=== PATIENT | female | born 1950 | race American Indian/Alaskan Native ===

== ENCOUNTER 2019-12-30 07:30 | Day surgery (SDC) | payer MEDICARE ==
[~2019-12-30 07:30] MED LIST: LACTATED RINGERS 1,000 ML IV SCH; MIDAZOLAM 2 MG/2 ML INJ IV NR; ceFAZolin/Water 2 GM/20 ML 2 GM/20 ML SYRINGE IV NR
[2019-12-30] MEDS ORDERED: HYDROcodone/ACETAMINOPHEN 5-325 MG TAB PO PRN (07:56)
[2019-12-30] MEDS ORDERED: fentaNYL 100 MCG/2 ML INJ IV PRN (07:56)
--- NOTE | 2019-12-30 07:56 | Anesthesia Consultation ---
Anesthesia Consult and Med Hx Date of service: 12/30/19 - Airway Anesthetic Teeth Evaluation: Good ROM Head & Neck: Adequate Mental/Hyoid Distance: Adequate Mallampati Class: Class II Intubation Access Assessment: Probably Good - Pulmonary Exam CTA: Yes - Cardiac Exam Cardiac Exam: RRR - Pre-Operative Health Status ASA Pre-Surgery Classification: ASA2 Proposed Anesthetic Plan: General - Pulmonary Hx Smoking: No Hx Respiratory Symptoms: No Hx Sleep Apnea: No (ABHI PRE SCREEN LOW RISK) - Cardiovascular System Hx Hypertension: Yes (took amlodipine this morning) Hx Heart Attack/AMI: No Hx Percutaneous Transluminal Coronary Angioplasty (PTCA): No - Central Nervous System CVA: No - Gastrointestinal Hx Gastroesophageal Reflux Disease: No - Endocrine Hx Renal Disease: No Hx Liver Disease: No Hx Non-Insulin Dependent Diabetes: Yes Hx Thyroid Disease: No - Other Systems Hx Obesity: No - Additional Comments Anesthesia Medical History Comments: No hx anesthetic complications. Remote hx PE, no longer on anticoagulation.
--- NOTE | 2019-12-30 07:56 | Anesthesia Day of Surgery ---
Anesthesia Day of Surgery - Day of Surgery Patient Examined: Yes Patient H&P Reviewed: Yes Patient is NPO: Yes
[2019-12-30] MEDS ORDERED: HYDROmorphone 1 MG/1 ML INJ ONE (09:21)
[2019-12-30] MEDS ORDERED: propofoL 200 MG/20 ML VIAL IV ONE (09:22)
[2019-12-30] MEDS ORDERED: LIDOCAINE MPF (2%) 20 MG/1 ML VIAL 5 ML ONE (09:22)
[2019-12-30] MEDS ORDERED: ONDANSETRON 4 MG/2 ML INJ ONE (09:39)
--- NOTE | 2019-12-30 10:07 | Short Stay Summary ---
Short Stay Documentation Date of service: 12/30/19 - History H&P: obtained from office - Allergies and Medications Current Medications: Allergies No Known Allergies Allergy (Verified 12/24/19 15:07) Home Medications Medication Instructions Recorded Confirmed Last Taken Type Atorvastatin [Lipitor Tab] 40 mg PO QHS 12/24/19 12/24/19 12/29/19 History Multivit-Min/Iron/Folic/Lutein 1 each PO DAILY 12/24/19 12/24/19 12/29/19 History [Centrum Silver Women Tablet] Potassium Citrate [Potassium 10 meq PO BID 12/24/19 12/24/19 12/29/19 History Citrate ER] amLODIPine [Norvasc] 5 mg PO DAILY 12/24/19 12/30/19 12/30/19 06:30 History metFORMIN [Glucophage] 500 mg PO QDAY 12/24/19 12/24/19 12/29/19 History Active Medications Acetaminophen/Hydrocodone Bitart ([place] 5/325) 1 each PO ONCE PRN PRN Reason: Pain, Moderate (4-6) Fentanyl (Sublimaze) 50 mcg IV Q5MIN PRN PRN Reason: Pain , Severe (7-10) Cefazolin Sodium (Ancef/Sterile Water 2 Gm/20 Ml) 2 gm in 20 mls @ 80 mls/hr IV PREOP NR; Protocol Stop: 12/30/19 23:59 Lactated Ringer's (Lactated Ringers) 1,000 mls @ 100 mls/hr IV DIRECT VALORIE Stop: 12/30/19 23:59 Last Admin: 12/30/19 08:40 Dose: 100 mls/hr Documented by: Midazolam HCl (Versed) 2 mg IV PREOP NR Stop: 12/30/19 23:59 Last Admin: 12/30/19 08:45 Dose: 2 mg Documented by: - Brief post op/procedure progress note Date of procedure: 12/30/19 Pre-op diagnosis: left renal stonex2---10mm Post-op diagnosis: same Procedure: eswl Anesthesia: DARIOA Surgeon: MARLENE PALENCIA Pathology: none Condition: stable - Hospital course Hospital course: ultram,norco, &post op info on chart - Disposition Condition at discharge: Stable Disposition: DC-01 TO HOME OR SELFCARE Short Stay Discharge Plan Follow up with: RL GARZON MD [Primary Care Provider] - 7 Days
--- NOTE | 2019-12-30 11:25 | Post Anesthesia Evaluation ---
- Post Anesthesia Evaluation Patient Participated: Yes Airway Patent: Yes Stable Respiratory Function: Yes Nausea/Vomiting: No Temp > 96.8F: Yes Pain Manageable: Yes Adequeate Hydration: Yes Anesthesia Complications: No
[2019-12-30 11:42] VITALS: BP 115/78
--- NOTE | 2019-12-30 12:03 | Operative Report ---
PREOPERATIVE DIAGNOSIS: Left renal stone. POSTOPERATIVE DIAGNOSIS: Left renal stones x 2, aggregate 10 mm. PROCEDURE: Left extracorporal shockwave lithotripsy, staged procedure. SURGEON: Josh Asencio M.D. ANESTHESIA: General. ESTIMATED BLOOD LOSS: Minimal. FLUIDS: Crystalloid. COMPLICATIONS: No complications. INDICATIONS: This patient is a 69-year-old female seen in the office in September for left flank pain. CT of abdomen and pelvis revealed a 10 mm stone. Her pain persisted. She has had a history of stones in the past. We discussed options. She agreed to proceed with surgical intervention. DESCRIPTION OF PROCEDURE: The patient was taken to the operative suite, placed in a supine position. After adequate general anesthesia, she was placed in a supine position. Her stone was localized in 2 planes using fluoroscopy. Extracorporal shock wave lithotripsy was administered in maximum kV of 7 and 2500 shocks. A 5-minute renal pause after 200 shocks. It appeared that we had adequate fragmentation, we were able to distribute the shocks amongst the 2 stones that were in the renal pelvis. She tolerated the procedure well. She was extubated and taken to recovery room. She will go home on [employer] and follow up in the office. She has a strainer. JOB# [id number] [facility]
== END 2019-12-30 07:31 | disposition home or self-care (01) ==
LOC: OR 07:30
PROVIDERS: ATTEND Urology
DX: N20.0 Calculus of kidney (principal); Z11.59 Encounter for screening for other viral diseases; E78.00 Pure hypercholesterolemia, unspecified; I10 Essential (primary) hypertension; M19.90 Unspecified osteoarthritis, unspecified site; E11.9 Type 2 diabetes mellitus without complications; Z72.89 Other problems related to lifestyle; Z79.84 Long term (current) use of oral hypoglycemic drugs; Z87.891 Personal history of nicotine dependence; Z98.41 Cataract extraction status, right eye; Z98.890 Other specified postprocedural states
CPT/HCPCS: 50590; 82962; J0690; J1170; J2250; J2405; J2704; J7120; U0003